=== PATIENT | male | born 1955 | race Caucasian/White ===

== ENCOUNTER 2018-07-30 05:27 | Day surgery (SDC) | payer OTHER ==
[~2018-07-30] VITALS: Ht 177.8 cm; Wt 99.8 kg
--- NOTE | ~2018-07-30 | O ---
[facility] [place] [address] OPERATIVE REPORT Name: JADIELANNAKELLI Room #: DEP [facility] [place]..#: [id number] Admission: 07/30/18 Attend Phys: Cyrus Vargas MD Discharge: 07/30/18 Date of : 53 Report #: [id number] THIS REPORT FOR: //name// CC: FAM unknown CARLEY LAZAR Cyrus Vargas DATE OF SERVICE: 07/30/2018 PREOPERATIVE DIAGNOSIS: Right foot fourth metatarsal head prominence with plantar ulcer. POSTOPERATIVE DIAGNOSIS: Right foot fourth metatarsal head prominence with plantar ulcer. PROCEDURE: Right foot fourth metatarsal head excision. SURGEON: Cyrus Vargas MD ANESTHESIA: General. [employer]: Eufemia Hilliard. ANESTHESIA: General. ESTIMATED BLOOD LOSS: Minimal. DRAINS: No drains. TOURNIQUET TIME: 20 minutes. DESCRIPTION OF PROCEDURE: The patient brought to the operating room where he was placed under general anesthesia. Once under adequate general anesthesia, his right lower extremity was prepped and draped in a sterile manner. The extremity was elevated and tourniquet placed to 300 mmHg. A dorsal incision over the fourth metatarsal was made and dissected down sharply directly to the bone, which was then exposed. The metatarsal neck was then transected in an oblique fashion with a sagittal saw and the metatarsal head was removed with a rongeur. The patient's plantar wound had sealed over and had healed. This then did decompress the area considerably. Once complete, the wound was irrigated copiously and closed with 3-0 nylon for the skin. The wound was dressed with Xeroform, 4 x 4s, and sterile soft compressive dressing was placed. Tourniquet was let down approximately 20 minutes. Toes were pink and warm with good [facility] [address] [place] [address] OPERATIVE REPORT Name: KELLI LUCIO [id number] Admission: 07/30/18 Attend Phys: Cyrus Vargas MD Discharge: 07/30/18 Date of : 53 Report #: [id number] capillary refill. There were no complications from the procedure. The patient tolerated the procedure well and went to the recovery room without incident. By: [id number] [id number] Cyrus Vargas MD /nt
[~2018-07-30 05:27] MED LIST: AMARYL2 MG PO; AMITRIPTYLINE H25 M2 PO; FLONASE 0.05%50 MCG NASAL; HYDROXYZINE PAM50 MG PO; LIPITOR 20 MG T20 M1 PO; METFORMIN HCL1000 MG PO; NEURONTIN 300300 M1 PO; NORVASC5 MG PO; OMEPRAZOLE40 MG PO; PAROXETINE HCL40 MG PO; VITAMIN B-12500 MCG PO
[2018-07-30 12:01] VITALS: BP 171/81
--- NOTE | 2018-07-30 13:41 | EKG ---
[address] [address] ELECTROCARDIOGRAM REPORT Name: JADIELANNAKELLI Room #: 150-9 [facility].#: [id number] Admission: 07/30/18 Attend Phys: Cyrus Vargas MD Discharge: Date of : 53 Report #: [id number] THIS REPORT FOR: //name// [facility] Test Date: 2018-07-30 Test Time: 11:33:13 Pat Name: KELLI LUCIO Department: Room: 150 9 Gender: M [employer]: TOY : 1955 Requested By: Cyrus Vargas Order Number: [id number] MD: Curtis Fierro Measurements Intervals [place] Rate: 78 P: 68 ID: [id number] QRS: 49 QRSD: 117 T: 24 QT: 397 QTc: 453 Interpretive Statements Sinus rhythm Nonspecific intraventricular conduction delay No previous ECG available for comparison Electronically Signed On 07-30-2018 13:41:08 [employer]E [employer]STER by Curtis Fierro [email or web address] <ELECTRONICALLY SIGNED> By: Curtis Fierro MD 07/30/18 1341 D: 01/1132 32 Curtis Fierro MD /BETO
[2018-07-30] MEDS ORDERED: PERCOCET 7.5-31 EACH PO (13:43)
[2018-07-30 14:16] VITALS: BP 171/81
== END 2018-07-30 15:00 | disposition home or self-care (01) ==
LOC: TBA 05:27 → OR 05:27
DX: M77.41 Metatarsalgia, right foot (principal); L97.519 Non-pressure chronic ulcer of other part of right foot with unspecified severity; I10 Essential (primary) hypertension; E78.5 Hyperlipidemia, unspecified; E11.9 Type 2 diabetes mellitus without complications; F32.9 Major depressive disorder, single episode, unspecified; K21.9 Gastro-esophageal reflux disease without esophagitis; F41.9 Anxiety disorder, unspecified; F17.210 Nicotine dependence, cigarettes, uncomplicated; Z98.52 Vasectomy status; Z95.0 Presence of cardiac pacemaker; Z88.2 Allergy status to sulfonamides; Z88.8 Allergy status to other drugs, medicaments and biological substances; Z79.899 Other long term (current) drug therapy; Z79.891 Long term (current) use of opiate analgesic
CPT/HCPCS: 50010; 50101; 50386; 50951; 56527; 57091; 62110; 62900; 70005